=== PATIENT | female | born 1945 | race Asian ===

== ENCOUNTER → 2018-07-26 | Outpatient (CLI) | payer MEDICARE, OTHER ==
[~2018-07-26] VITALS: Ht 149.9 cm; Wt 56.0 kg
[~2018-07-26] MED LIST: ACET-784 PO; AMLO-511 PO; ASPI81TA39 PO; ATOR40TA28 PO; CALC-613 PO; CARV25TA32 PO; FERR325C PO; GUAIFDM PO; LORA10TA7 PO; LOSA50TA26 PO; POTA10CA44 PO; [UNRECOGNIZED DRUG - OTHER] PO
[2018-07-26 12:07] VITALS: BP 107/59
== END | disposition home or self-care (01) ==
LOC: SRCNTR 11:12
PROVIDERS: ATTEND Internal Medicine Clinical Cardiac Electrophysiology
DX: Z45.02 Encounter for adjustment and management of automatic implantable cardiac defibrillator (principal)
CPT/HCPCS: G0463

== ENCOUNTER → 2018-08-20 | Outpatient (CLI) | payer MEDICARE, OTHER | END | disposition home or self-care (01) | LOC: RADMN 13:02 | PROVIDERS: ATTEND Internal Medicine Infectious Disease | DX: I51.7 Cardiomegaly (principal); I70.90 Unspecified atherosclerosis; Z95.0 Presence of cardiac pacemaker | CPT/HCPCS: 71250 ==

== ENCOUNTER → 2018-08-27 | Outpatient (CLI) | payer MEDICARE, OTHER ==
[~2018-08-27] MED LIST changes: +CARV3 PO; +CARV6 PO; +CETI-290 PO; +CLOP75 PO; +DOXY100C PO; +DSS100 PO; +HEPA500018 SQ; +HYDR-4061 PO; +LOSA25TA41 PO; -LOSA50TA26 PO; +LOSA50TA65 PO; +MOM30 PO; +PANT40TA25 PO; +SPIR25 PO; +TELM40 PO
[2018-08-27 16:05] VITALS: BP 106/58
== END | disposition home or self-care (01) ==
LOC: SRCNTR 14:47
PROVIDERS: ATTEND Internal Medicine Clinical Cardiac Electrophysiology
DX: Z45.018 Encounter for adjustment and management of other part of cardiac pacemaker (principal); I25.10 Atherosclerotic heart disease of native coronary artery without angina pectoris; I11.0 Hypertensive heart disease with heart failure; I50.9 Heart failure, unspecified
CPT/HCPCS: G0463

== ENCOUNTER 2018-09-19 01:28 | Inpatient (IN) | payer MEDICARE, OTHER ==
[~2018-09-19] VITALS: Ht 157.5 cm; Wt 62.7 kg
[~2018-09-19 01:28] MED LIST changes: -CARV3 PO; -CARV6 PO; -CETI-290 PO; -CLOP75 PO; -DOXY100C PO; -DSS100 PO; -HEPA500018 SQ; -HYDR-4061 PO; -LOSA25TA41 PO; +LOSA50TA26 PO; -LOSA50TA65 PO; -MOM30 PO; -PANT40TA25 PO; -SPIR25 PO; -TELM40 PO
[2018-09-19 01:49] LABS: BASOPHILS % (AUTO) 0.6 % (0.0-2.0); EOSINOPHILS % (AUTO) 2.4 % (1.0-6.0); HEMATOCRIT 38.4 % (36-46); HEMOGLOBIN 12.8 g/dL (12.0-16.0); LYMPHOCYTES # (AUTO) 1.5 K/uL (1.0-4.8); LYMPHOCYTES % (AUTO) 17.1 % (22.0-44.0); MEAN CORPUSCULAR HEMOGLOBIN 32.9 pg (26.0-34.0); MEAN CORPUSCULAR HGB CONC 33.4 G/dL (31.0-37.0); MEAN CORPUSCULAR VOLUME 99 fL (80-100); MONOCYTES # (AUTO) 0.7 K/uL (0.1-1.0); MONOCYTES % (AUTO) 7.8 % (2.0-9.0); NEUTROPHILS # (AUTO) 6.3 K/uL (1.8-7.7); NEUTROPHILS % (AUTO) 72.1 % (40.0-70.0); PLATELET COUNT (AUTO) 148 K/uL (150-450)
[2018-09-19 02:00] LABS: INR 1.1 (0.9-1.1); PROTHROMBIN TIME 11.2 SEC (9.4-11.6)
[2018-09-19 02:02] LABS: CALCIUM, TOTAL 8.6 mg/dL (8.8-10.5); CREATININE 0.93 mg/dL (0.60-1.30); POTASSIUM 4.3 mmol/L (3.5-5.1)
[2018-09-19 02:07] LABS: ALBUMIN 3.4 g/dL (3.4-5.0); BILIRUBIN,TOTAL 0.7 mg/dL (0.1-1.0); TOTAL PROTEIN, SERUM 7.2 g/dL (6.4-8.2)
[2018-09-19] MEDS ORDERED: CETI-290 PO (02:16)
[2018-09-19] MEDS ORDERED: CLOP75 PO (02:16)
[2018-09-19] MEDS ORDERED: SPIR25 PO (02:16)
[2018-09-19] MEDS ORDERED: TELM40 PO (02:16)
[2018-09-19] MEDS ORDERED: IOVERSOL 350 MG/ML 100 ML VIAL ONE (02:16)
[2018-09-19] MEDS ORDERED: SODIUM CHLORIDE 0.9% 100 ML ONE (02:16)
[2018-09-19] MEDS ORDERED: CLOPIDOGREL BISULFATE 75 MG TABLET PO ONE (02:45)
[2018-09-19] MEDS: ASPIRIN 325 MG TABLET PO ONE ×2 (03:01→03:24)
[2018-09-19] MEDS: CLOPIDOGREL BISULFATE 75 MG TABLET PO ONE ×2 (03:01→03:43)
[2018-09-19] MEDS ORDERED: ASPIRIN 325 MG TABLET PO ONE (03:30)
[2018-09-19 03:44] LABS: APPEARANCE,URINE CLEAR (CLEAR); BILIRUBIN,URINE NEGATIVE (NEGATIVE); GLUCOSE, URINE (UA) NEGATIVE (NEGATIVE); KETONES,URINE NEGATIVE (NEGATIVE); LEUKOCYTE ESTERASE ,URINE NEGATIVE (NEGATIVE); NITRATE,URINE NEGATIVE (NEGATIVE); OCCULT BLOOD,URINE NEGATIVE (NEGATIVE); PH,URINE 6.5 (5.0-8.0); PROTEIN,URINE NEGATIVE (NEGATIVE); UROBILINOGEN,URINE 0.2 mg/dL (<=1.0)
[2018-09-19 03:49] LABS: AMPHET/METH SCREEN,URINE NEGATIVE (NEGATIVE); BACTERIA,URINE None Seen /HPF (None Seen); BARBITURATE SCREEN, URINE NEGATIVE (NEGATIVE); BENZODIAZEPINES SCREEN,URINE NEGATIVE (NEGATIVE); CANNABINOID SCREEN,URINE NEGATIVE (NEGATIVE); COCAINE SCREEN,URINE NEGATIVE (NEGATIVE); METHADONE SCREEN, URINE NEGATIVE (NEGATIVE); OPIATE SCREEN,URINE POSITIVE (NEGATIVE); RBC,URINE 0-2 /HPF (0-2); SQUAMOUS EPITHELIAL CELL,UR Many /LPF (None Seen); WBC,URINE 0-2 /HPF (0-5)
[2018-09-19 03:51] LABS: PHENCYCLIDINE SCREEN,URINE NEGATIVE (NEGATIVE)
[2018-09-19] MEDS ORDERED: MAGNESIUM HYDROXIDE SUSPENSION 30 ML UDCUP PO PRN (08:00)
[2018-09-19] MEDS: ASPIRIN 81 MG CHEWABLE TABLET NG SCH (08:35)
[2018-09-19] MEDS: HEPARIN SODIUM,PORCINE 5,000 UNITS/ML VIAL SQ SCH ×4 (08:35→20:42)
[2018-09-19] MEDS: ATORVASTATIN CALCIUM 40 MG TABLET NG SCH (08:35)
[2018-09-19 08:37] LABS: CHOL/HDL RATIO 1.9 (3.9-5.7)
[2018-09-19] MEDS: PANTOPRAZOLE SODIUM 40 MG DR TABLET PO SCH (08:42)
[2018-09-19] MEDS ORDERED: LOSARTAN POTASSIUM 25 MG TABLET NG SCH (09:00)
[2018-09-19] MEDS ORDERED: CARVEDILOL 12.5 MG TABLET NG SCH (09:00)
[2018-09-19] MEDS: CLOPIDOGREL BISULFATE 75 MG TABLET NG SCH ×2 (09:00→09:52)
[2018-09-19] MEDS: DOCUSATE SODIUM 100 MG CAPSULE PO SCH ×2 (09:41→20:42)
[2018-09-19 11:40] VITALS: BP 146/82
[2018-09-19 12:00] VITALS: BP 151/103
[2018-09-19] MEDS ORDERED: DEXTROSE 5%-0.45% SODIUM CHL 1,000 ML IV ONE (12:15)
[2018-09-19 16:00] VITALS: BP 118/73
[2018-09-19 20:00] VITALS: BP 125/67
[2018-09-20] VITALS: BP 106/57
[2018-09-20 04:00] VITALS: BP 123/53
[2018-09-20 04:54] LABS: BASOPHILS % (AUTO) 0.6 % (0.0-2.0); EOSINOPHILS % (AUTO) 4.2 % (1.0-6.0); HEMATOCRIT 36.1 % (36-46); HEMOGLOBIN 12.4 g/dL (12.0-16.0); LYMPHOCYTES # (AUTO) 1.2 K/uL (1.0-4.8); LYMPHOCYTES % (AUTO) 18.1 % (22.0-44.0); MEAN CORPUSCULAR HEMOGLOBIN 33.5 pg (26.0-34.0); MEAN CORPUSCULAR HGB CONC 34.4 G/dL (31.0-37.0); MEAN CORPUSCULAR VOLUME 98 fL (80-100); MONOCYTES # (AUTO) 0.6 K/uL (0.1-1.0); MONOCYTES % (AUTO) 8.9 % (2.0-9.0); NEUTROPHILS # (AUTO) 4.4 K/uL (1.8-7.7); NEUTROPHILS % (AUTO) 68.2 % (40.0-70.0); PLATELET COUNT (AUTO) 139 K/uL (150-450); RED CELL DISTRIBUTION WIDTH 12.7 % (11.5-14.5)
[2018-09-20 05:13] LABS: ALANINE AMINOTRANSFERASE 16 U/L (12-78); ALKALINE PHOSPHATASE 76 U/L (46-116); ANION GAP 6 mmol/L (8-16); ASPARTATE AMINOTRANSFERASE 34 U/L (15-37); BILIRUBIN,TOTAL 0.8 mg/dL (0.1-1.0); CALCIUM, TOTAL 8.5 mg/dL (8.8-10.5); CARBON DIOXIDE 28 mmol/L (22-29); CHLORIDE 103 mmol/L (98-107); CREATININE 0.86 mg/dL (0.60-1.30); GLUCOSE,RANDOM 97 mg/dL (70-110); POTASSIUM 4.3 mmol/L (3.5-5.1); SODIUM SERUM 137 mmol/L (136-145); TOTAL PROTEIN, SERUM 6.7 g/dL (6.4-8.2); UREA NITROGEN, BLOOD 16 mg/dL (7-18)
[2018-09-20 05:19] LABS: GLOMERULAR FILTR. RATE CALC > 60 mL/min (>60)
[2018-09-20 08:00] VITALS: BP 102/57
[2018-09-20] MEDS: ATORVASTATIN CALCIUM 40 MG TABLET NG SCH (08:16)
[2018-09-20] MEDS: DOCUSATE SODIUM 100 MG CAPSULE PO SCH ×2 (08:17→20:05)
[2018-09-20] MEDS: ACETAMINOPHEN 325 MG TABLET PO PRN (08:17)
[2018-09-20] MEDS: CLOPIDOGREL BISULFATE 75 MG TABLET NG SCH (08:17)
[2018-09-20] MEDS: ASPIRIN 81 MG CHEWABLE TABLET NG SCH (08:18)
[2018-09-20] MEDS: PANTOPRAZOLE SODIUM 40 MG DR TABLET PO SCH (08:18)
[2018-09-20 12:00] VITALS: BP 113/57
[2018-09-20] MEDS: DOXYCYCLINE HYCLATE 100 MG CAPSULE PO SCH ×2 (12:22→20:05)
[2018-09-20] MEDS: HYDROCODONE/ACETAMINOPHEN 5-325 MG TABLET PO PRN (12:22)
[2018-09-20] MEDS: HEPARIN SODIUM,PORCINE 5,000 UNITS/ML VIAL SQ SCH ×2 (12:30→20:05)
[2018-09-20] MEDS: CARVEDILOL 3.125 MG TABLET PO SCH (20:05)
[2018-09-20 20:06] VITALS: BP 124/58
[2018-09-21] VITALS (7 sets, daily range): BP systolic 107–121; BP diastolic 54–68
[2018-09-21] MEDS: ACETAMINOPHEN 325 MG TABLET PO PRN (00:16)
[2018-09-21 07:00] LABS: BASOPHILS % (AUTO) 0.4 % (0.0-2.0); EOSINOPHILS % (AUTO) 2.2 % (1.0-6.0); HEMOGLOBIN 11.8 g/dL (12.0-16.0); LYMPHOCYTES # (AUTO) 1.3 K/uL (1.0-4.8); LYMPHOCYTES % (AUTO) 15.9 % (22.0-44.0); MEAN CORPUSCULAR HEMOGLOBIN 33.9 pg (26.0-34.0); MEAN CORPUSCULAR HGB CONC 34.7 G/dL (31.0-37.0); MEAN CORPUSCULAR VOLUME 98 fL (80-100); MONOCYTES # (AUTO) 0.7 K/uL (0.1-1.0); MONOCYTES % (AUTO) 8.5 % (2.0-9.0); NEUTROPHILS # (AUTO) 5.7 K/uL (1.8-7.7); PLATELET COUNT (AUTO) 151 K/uL (150-450); RED BLOOD CELL COUNT(AUTO) 3.47 MIL/uL (4.00-5.20); RED CELL DISTRIBUTION WIDTH 12.6 % (11.5-14.5)
[2018-09-21 07:11] LABS: ALANINE AMINOTRANSFERASE 22 U/L (12-78); ALBUMIN 2.8 g/dL (3.4-5.0); ALKALINE PHOSPHATASE 77 U/L (46-116); ANION GAP 6 mmol/L (8-16); ASPARTATE AMINOTRANSFERASE 28 U/L (15-37); BILIRUBIN,TOTAL 0.9 mg/dL (0.1-1.0); CALCIUM, TOTAL 8.4 mg/dL (8.8-10.5); CARBON DIOXIDE 27 mmol/L (22-29); CHLORIDE 102 mmol/L (98-107); CREATININE 0.87 mg/dL (0.60-1.30); GLOMERULAR FILTR. RATE CALC > 60 mL/min (>60); GLUCOSE,RANDOM 102 mg/dL (70-110); POTASSIUM 4.1 mmol/L (3.5-5.1); SODIUM SERUM 135 mmol/L (136-145); TOTAL PROTEIN, SERUM 6.7 g/dL (6.4-8.2); UREA NITROGEN, BLOOD 18 mg/dL (7-18)
[2018-09-21] MEDS: ASPIRIN 81 MG CHEWABLE TABLET NG SCH (08:29)
[2018-09-21] MEDS: PANTOPRAZOLE SODIUM 40 MG DR TABLET PO SCH (08:30)
[2018-09-21] MEDS: DOCUSATE SODIUM 100 MG CAPSULE PO SCH ×2 (08:30→19:51)
[2018-09-21] MEDS: CARVEDILOL 3.125 MG TABLET PO SCH ×2 (08:30→19:51)
[2018-09-21] MEDS: ATORVASTATIN CALCIUM 40 MG TABLET NG SCH (08:30)
[2018-09-21] MEDS: HEPARIN SODIUM,PORCINE 5,000 UNITS/ML VIAL SQ SCH ×2 (08:31→19:52)
[2018-09-21] MEDS: DOXYCYCLINE HYCLATE 100 MG CAPSULE PO SCH ×2 (08:31→19:51)
[2018-09-21] MEDS: CLOPIDOGREL BISULFATE 75 MG TABLET NG SCH (10:49)
[2018-09-22 03:34] VITALS: BP 127/57
[2018-09-22] MEDS: HYDROCODONE/ACETAMINOPHEN 5-325 MG TABLET PO PRN (03:53)
[2018-09-22 06:30] LABS: BASOPHILS % (AUTO) 0.5 % (0.0-2.0); EOSINOPHILS % (AUTO) 4.8 % (1.0-6.0); HEMATOCRIT 33.5 % (36-46); HEMOGLOBIN 11.6 g/dL (12.0-16.0); LYMPHOCYTES # (AUTO) 1.1 K/uL (1.0-4.8); LYMPHOCYTES % (AUTO) 14.7 % (22.0-44.0); MEAN CORPUSCULAR HGB CONC 34.6 G/dL (31.0-37.0); MEAN CORPUSCULAR VOLUME 98 fL (80-100); MONOCYTES # (AUTO) 0.7 K/uL (0.1-1.0); MONOCYTES % (AUTO) 8.9 % (2.0-9.0); NEUTROPHILS # (AUTO) 5.3 K/uL (1.8-7.7); NEUTROPHILS % (AUTO) 71.1 % (40.0-70.0); PLATELET COUNT (AUTO) 167 K/uL (150-450); RED BLOOD CELL COUNT(AUTO) 3.41 MIL/uL (4.00-5.20); RED CELL DISTRIBUTION WIDTH 12.5 % (11.5-14.5)
[2018-09-22 06:48] LABS: ALBUMIN 2.7 g/dL (3.4-5.0); BILIRUBIN,TOTAL 0.8 mg/dL (0.1-1.0); CALCIUM, TOTAL 8.6 mg/dL (8.8-10.5); CREATININE 0.96 mg/dL (0.60-1.30); MAGNESIUM 1.7 mg/dL (1.80-2.40); POTASSIUM 4.4 mmol/L (3.5-5.1); TOTAL PROTEIN, SERUM 6.7 g/dL (6.4-8.2)
[2018-09-22 07:27] VITALS: BP 122/57
[2018-09-22] MEDS: PANTOPRAZOLE SODIUM 40 MG DR TABLET PO SCH (07:48)
[2018-09-22] MEDS: ATORVASTATIN CALCIUM 40 MG TABLET NG SCH (07:48)
[2018-09-22] MEDS: HEPARIN SODIUM,PORCINE 5,000 UNITS/ML VIAL SQ SCH (07:48)
[2018-09-22] MEDS: CLOPIDOGREL BISULFATE 75 MG TABLET NG SCH (07:48)
[2018-09-22] MEDS: CARVEDILOL 3.125 MG TABLET PO SCH (07:48)
[2018-09-22] MEDS: DOXYCYCLINE HYCLATE 100 MG CAPSULE PO SCH (07:48)
[2018-09-22] MEDS: DOCUSATE SODIUM 100 MG CAPSULE PO SCH (07:48)
[2018-09-22] MEDS: ASPIRIN 81 MG CHEWABLE TABLET NG SCH (07:49)
[2018-09-22] MEDS ORDERED: LOSARTAN POTASSIUM 25 MG TABLET PO SCH (09:30)
[2018-09-22 11:27] VITALS: BP 98/56
[2018-09-22] MEDS ORDERED: CARV3 PO (12:10)
[2018-09-22] MEDS ORDERED: DSS100 PO (12:11)
[2018-09-22] MEDS ORDERED: DOXY100C PO (12:12)
[2018-09-22] MEDS ORDERED: HEPA500018 SQ (12:13)
[2018-09-22] MEDS ORDERED: LOSA25TA16 PO (12:14)
[2018-09-22] MEDS ORDERED: PANT40TA25 PO (12:14)
[2018-09-22] MEDS ORDERED: ACET-784 PO (12:16)
[2018-09-22] MEDS ORDERED: HYDR-4061 PO (12:17)
[2018-09-22] MEDS ORDERED: MOM30 PO (12:18)
[2018-09-22] MEDS: ACETAMINOPHEN 325 MG TABLET PO PRN (12:40)
== END 2018-09-22 14:30 | DRG 64 ==
LOC: EMS 01:28 → ICU 11:11 → 5N 09-20 14:55
PROVIDERS: ADMIT Internal Medicine; ATTEND Internal Medicine
DX: I63.9 Cerebral infarction, unspecified (principal); I21.4 Non-ST elevation (NSTEMI) myocardial infarction; I50.20 Unspecified systolic (congestive) heart failure; G81.94 Hemiplegia, unspecified affecting left nondominant side; I25.10 Atherosclerotic heart disease of native coronary artery without angina pectoris; E78.5 Hyperlipidemia, unspecified; I11.0 Hypertensive heart disease with heart failure; E11.9 Type 2 diabetes mellitus without complications; I65.29 Occlusion and stenosis of unspecified carotid artery; I25.5 Ischemic cardiomyopathy; I67.1 Cerebral aneurysm, nonruptured; E78.00 Pure hypercholesterolemia, unspecified; Z95.810 Presence of automatic (implantable) cardiac defibrillator; Z95.1 Presence of aortocoronary bypass graft; Z79.82 Long term (current) use of aspirin; Z79.899 Other long term (current) drug therapy; I25.2 Old myocardial infarction; Z82.49 Family history of ischemic heart disease and other diseases of the circulatory system; Z83.3 Family history of diabetes mellitus
CPT/HCPCS: 51702; 70496; 82948; 83735; 86850; 86900; 86901; 87081; 92523; 92526; 93005; 93306; 97110; 97116; 97162; 97166; 97530; 97535; 99291; G0378; J1644; J7050